=== PATIENT | female | born 1955 | race Two or more races ===

== ENCOUNTER 2018-11-12 10:28 | Outpatient (CLI) | payer OTHER | END 2018-11-12 10:45 | disposition home or self-care (01) | LOC: NUCLEAR 10:28 | DX: M81.0 Age-related osteoporosis without current pathological fracture (principal) ==

== ENCOUNTER → 2020-11-19 | Outpatient (CLI) | payer OTHER | END | disposition home or self-care (01) | LOC: NUCLEAR 14:00 | PROVIDERS: ATTEND Internal Medicine Rheumatology | DX: M81.0 Age-related osteoporosis without current pathological fracture (principal); M85.88 Other specified disorders of bone density and structure, other site ==

== ENCOUNTER 2023-06-02 12:34 | Outpatient (CLI) | payer OTHER | END 2023-06-02 12:39 | disposition home or self-care (01) | LOC: NUCLEAR 12:34 | PROVIDERS: ATTEND Internal Medicine Rheumatology | DX: M81.0 Age-related osteoporosis without current pathological fracture (principal) ==

== ENCOUNTER 2024-07-26 13:06 | Outpatient (CLI) | payer OTHER | END 2024-07-26 13:10 | disposition home or self-care (01) | LOC: RAD 13:06 | PROVIDERS: ATTEND Physical Medicine & Rehabilitation | DX: M54.50 Low back pain, unspecified (principal) ==